=== PATIENT | female | born 1985 | race Caucasian/White ===

== ENCOUNTER 2016-11-20 06:15 | Emergency (ER) | payer SELFPAY ==
[~2016-11-20] VITALS: Ht 175.3 cm; Wt 57.0 kg
[~2016-11-20 06:15] MED LIST: AMOX875T PO; ZOFR4TAB3 SL
[2016-11-20 06:19] VITALS: BP 130/82; PULSE 66; RESP 18; TEMP 97.7; O2SAT 100
[2016-11-20] MEDS ORDERED: BACT800T5 PO (06:47)
[2016-11-20] MEDS ORDERED: MUPI2%T TOPICAL (06:47)
--- NOTE | 2016-11-20 06:47 | PD ---
HPI Chief Complaint: Skin Problem Time Seen by Provider: 06:40 Travel History International Travel<30 days: No Contact w/Intl Traveler<30days: No Traveled to known affect area: No History of Present Illness HPI The patient is a 31-year-old female that got a tattoo 9 days ago and she developed redness around the tattoo. No red streak is present. She denies any fever. PFSH Past Medical History Medical History: Denies Significant Hx Diminished Hearing: No Immunizations Current: Yes Tetanus Vaccination: < 5 Years Influenza Vaccination: No ?: Not LMP: oct 27 : 2 Para: 2 Miscarriage: 0 : 0 Ovarian Cysts: Yes Social History Alcohol Use: Yes (2x week) Tobacco Use: Yes (1 PPD) Substance Use: No Allergies-Medications (Allergen,Severity, Reaction): Coded Allergies: No Known Allergies (Unverified , 11/20/16) Reported Meds & Prescriptions Reported Meds & Active Scripts Active No Active Prescriptions or Reported Medications Review of Systems Except as stated in HPI: all other systems reviewed are Neg Physical Exam Narrative GENERAL: Well-nourished, well-developed patient in no apparent distress. Her vital signs are normal. SKIN: Warm and dry. The left hand between the first and second metacarpals dorsally has a 1-1/2 cm diameter tattoo. There is redness beneath this and a possible red streak coursing upwards for several centimeters. No pus is noted. No drainage is noted. HEAD: Normocephalic. EYES: No scleral icterus. No injection or drainage. NECK: Supple, trachea midline. No JVD or lymphadenopathy. CARDIOVASCULAR: Regular rate and rhythm without murmurs, gallops, or rubs. RESPIRATORY: Breath sounds equal bilaterally. No accessory muscle use. GASTROINTESTINAL: Abdomen soft, non-tender, nondistended. MUSCULOSKELETAL: No cyanosis, or edema. BACK: Nontender without obvious deformity. No CVA tenderness. Data Data Last Documented VS Vital Signs Date Time Temp Pulse Resp B/P Pulse Ox O2 Delivery O2 Flow Rate FiO2 11/20/16 06:19 97.7 66 18 130/82 100 Room Air MDM Medical Decision Making Medical Screen Exam Complete: Yes Emergency Medical Condition: Yes Medical Record Reviewed: Yes Differential Diagnosis Cellulitis, allergy to tattoo pigments, abscessunlikely, lymphadenitis Narrative Course The patient appears to have a cellulitis pole of the tattoo. There appears to be a slight red streak running proximally. Plan: The patient be given Bactroban to put twice daily on the tattoo and Septra DS. Diagnosis Primary Impression: Cellulitis of left hand Additional Instructions: As we discussed, elevate your left hand above your heart as much as possible. Soak it twice daily and then put the Bactroban ointment on it. Take the antibiotic twice daily for 10 days. The oral antibiotics is free at [facility]. If worse, return to the emergency department. Med/Other Pt SpecificInfo: Prescription(s) given Scripts Sulfamethoxazole-Trimethoprim (Bactrim DS)800-160 Mg Tab1 Tab PO BID #20 TAB Ref 0 Prov:Kye Fitzgerald MD 11/20/16 Mupirocin Topical (Bactroban Topical)2 % Cream1 Applic TOPICAL BID #1 TUBE Ref 0 Prov:Kye Fitzgerald MD 11/20/16 Disposition: 01 DISCHARGE HOME Condition: Stable Kye Fitzgerald MD Nov 20, 2016 06:47
[2016-11-20] MEDS ORDERED: SULFAMETHOXAZOLE-TRIMETHOPRIM DS 800-160 MG TAB PO ONE (07:00)
[2017-02-28] MEDS ORDERED: CONCCAP2 PO (10:17)
== END 2016-11-20 07:01 | disposition home or self-care (01) ==
LOC: PHED 06:15
DX: L03.114 Cellulitis of left upper limb (principal); F17.210 Nicotine dependence, cigarettes, uncomplicated
CPT/HCPCS: 99282

== ENCOUNTER 2017-04-27 07:35 | Emergency (ER) | payer MEDICAID ==
[~2017-04-27] VITALS: Ht 175.3 cm; Wt 59.0 kg
[~2017-04-27 07:35] MED LIST changes: -AMOX875T PO; +CONCCAP2 PO; -ZOFR4TAB3 SL
[2017-04-27 07:44] VITALS: BP 113/85; PULSE 70; RESP 16; TEMP 98.3; O2SAT 100
[2017-04-27] MEDS ORDERED: LIDOCAINE HCL 1% PF 30 ML VIAL ONE (07:59)
[2017-04-27] MEDS ORDERED: ACETAMINOPHEN 325 MG TAB PO ONE (08:00)
[2017-04-27] MEDS ORDERED: LIDOCAINE HCL 1% 50 ML VIAL INFIL ONE (08:00)
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
[2017-04-27] MEDS ORDERED: LIDOCAINE HCL 1% PF 30 ML VIAL INFIL ONE (08:15)
--- NOTE | 2017-04-27 08:31 | RADRPT ---
EXAM DATE/TIME: 04/27/2017 08:11 [facility] COMPARISON: No previous studies available for comparison. INDICATIONS : Laceration from window pane glass MEDICAL HISTORY : None. SURGICAL HISTORY : None. ENCOUNTER: Initial ACUITY: 1 day PAIN SCORE: 8/10 LOCATION: Right hand FINDINGS: Two view examination of the right hand demonstrates no soft tissue swelling, dislocation, or fracture . The joint spaces are maintained. Bony mineralization is normal. CONCLUSION: Unremarkable limited examination of the right hand. Tito Hooker MD on April 27, 2017 at 8:29 Board Certified Radiologist. This report was verified electronically.
--- NOTE | 2017-04-27 08:33 | RADRPT ---
EXAM DATE/TIME: 04/27/2017 08:17 [facility] COMPARISON: No previous studies available for comparison. INDICATIONS : Laceration from window pane glass MEDICAL HISTORY : None. SURGICAL HISTORY : None. ENCOUNTER: Initial ACUITY: 1 day PAIN SCORE: 8/10 LOCATION: Left wrist FINDINGS: Two view examination of the left wrist demonstrates no soft tissue swelling, dislocation, or fracture . The joint spaces are maintained. Bony mineralization is normal. CONCLUSION: Unremarkable limited examination of the left wrist except for an abnormal lucency in the distal ulna. There is marked cortical thinning in the metaphyseal lesion with mostly well-defined border. Could be some type of chondroid lesion. Outpatient followup MRI of the left wrist is recommended. Tito Hooker MD on April 27, 2017 at 8:30 Board Certified Radiologist. This report was verified electronically.
[2017-04-27] MEDS ORDERED: TYLE325T PO (09:24)
== END 2017-04-27 09:35 | disposition home or self-care (01) ==
LOC: PHEFT 07:35
DX: S61.512A Laceration without foreign body of left wrist, initial encounter (principal); S61.411A Laceration without foreign body of right hand, initial encounter; W25.XXXA Contact with sharp glass, initial encounter
CPT/HCPCS: 12042; 73100; 73120

== ENCOUNTER 2017-05-13 18:35 | Emergency (ER) | payer MEDICAID ==
[~2017-05-13] VITALS: Ht 175.3 cm; Wt 60.0 kg
[~2017-05-13 18:35] MED LIST changes: -CONCCAP2 PO; +TYLE325T PO
[2017-05-13 18:37] VITALS: BP 109/68; PULSE 64; RESP 20; TEMP 99; O2SAT 100
--- NOTE | 2017-05-13 19:52 | PD ---
HPI Chief Complaint: Wound/Suture/Staple Re-Check Time Seen by Provider: 19:50 Travel History International Travel<30 days: No Contact w/Intl Traveler<30days: No Traveled to known affect area: No History of Present Illness HPI 32-year-old female that presents to the ED for evaluation of suture removal. Patient had sutures performed at this facility on April 27. This was done to the left wrist. Patient had [address] She denies any new symptoms. No pain. Per patient she waited this long because he wanted to make sure that the wound was healing properly. No other medical issues at this time. PFSH Past Medical History Diminished Hearing: No Immunizations Current: Yes ?: Not : 2 Para: 2 Miscarriage: 0 : 0 Ovarian Cysts: Yes Social History Alcohol Use: Yes (2x week) Tobacco Use: Yes (1 PPD) Substance Use: No Allergies-Medications (Allergen,Severity, Reaction): Coded Allergies: No Known Allergies (Unverified , 05/13/17) Reported Meds & Prescriptions Reported Meds & Active Scripts Active Tylenol (Acetaminophen) 325 Mg Tab 650 Mg PO Q6H PRN Review of Systems Except as stated in HPI: all other systems reviewed are Neg Physical Exam Narrative GENERAL: SKIN: Warm and dry. Patient has a healing laceration about 5 cm semicircular with 8 sutures noted. Very well approximated and healed. No sign of bleeding or infection HEAD: Atraumatic. Normocephalic. EYES: Pupils equal and round. No scleral icterus. No injection or drainage. ENT: No nasal bleeding or discharge. Mucous membranes pink and moist. NECK: Trachea midline. No JVD. CARDIOVASCULAR: Regular rate and rhythm. RESPIRATORY: No accessory muscle use. Clear to auscultation. Breath sounds equal bilaterally. GASTROINTESTINAL: Abdomen soft, non-tender, nondistended. Hepatic and splenic margins not palpable. MUSCULOSKELETAL: Extremities without clubbing, cyanosis, or edema. No obvious deformities. NEUROLOGICAL: Awake and alert. No obvious cranial nerve deficits. Motor grossly within normal limits. Five out of 5 muscle strength in the arms and legs. Normal speech. PSYCHIATRIC: Appropriate mood and affect; insight and judgment normal. Data Data Last Documented VS Vital Signs Date Time Temp Pulse Resp B/P Pulse Ox O2 Delivery O2 Flow Rate FiO2 05/13/17 18:37 99.0 64 20 109/68 100 Room Air MDM Medical Decision Making Medical Screen Exam Complete: Yes Emergency Medical Condition: Yes Medical Record Reviewed: Yes Differential Diagnosis Laceration versus suture removal versus wound healing Narrative Course 32 -year-old female that presents to the ED for evaluation of suture removal. Patient was properly examined and was found to have signs and symptoms consistent appears to be suture removal. No sign of acute medical distress. After explained procedure to the patient and she agreed to it using suture removal kit all 8 sutures were removed by me. Patient tolerated procedure well. Area was cleaned with saline and Betadine and new dressing was applied. Told to continue doing wound care. Follow with PCP. See ED worsening symptoms. Diagnosis Primary Impression: Visit for suture removal Patient Instructions: General Instructions Additional Instructions: Use meoderma OTC to help with scarring. Keep it away from swimming for about 2-3 days. Keep it away from the sun or apply sunscreen to the area while outside for two more weeks. See ED if worsening symptoms. F/u with PCP. Med/Other Pt SpecificInfo: No Change to Meds Disposition: 01 DISCHARGE HOME Condition: Stable Rolf Patterson May 13, 2017 19:52
== END 2017-05-13 20:03 | disposition home or self-care (01) ==
LOC: NEPD 18:35
DX: Z48.02 Encounter for removal of sutures (principal); F17.200 Nicotine dependence, unspecified, uncomplicated
CPT/HCPCS: 99281

== ENCOUNTER 2017-12-26 14:15 | Emergency (ER) | payer MEDICAID ==
[~2017-12-26] VITALS: Ht 175.3 cm; Wt 58.3 kg
[2017-12-26 14:19] VITALS: BP 138/76; PULSE 57; RESP 16; TEMP 98.4; O2SAT 100
--- NOTE | 2017-12-26 14:42 | PD ---
HPI Chief Complaint: GI Complaint Time Seen by Provider: 14:38 Travel History International Travel<30 days: No Contact w/Intl Traveler<30days: No Traveled to known affect area: No History of Present Illness HPI This 32-year-old female says she started sweating last night. She got nauseated and has had persistent vomiting. She is having some headache. She had some loose stools. She has been unable to hold anything down today. She is on no medication. Nobody else has been sick. PFSH Past Medical History Diminished Hearing: No Immunizations Current: Yes ?: Not LMP: 12/19/17 : 2 Para: 2 Miscarriage: 0 : 0 Ovarian Cysts: Yes Social History Alcohol Use: Yes (2x week) Tobacco Use: Yes (1 PPD) Substance Use: No Allergies-Medications (Allergen,Severity, Reaction): Coded Allergies: No Known Allergies (Unverified Adverse Reaction, Unknown, 12/26/17) Reported Meds & Prescriptions Reported Meds & Active Scripts Active Zofran Odt (Ondansetron Odt) 4 Mg Tab 4 Mg SL Q6HR PRN Tylenol (Acetaminophen) 325 Mg Tab 650 Mg PO Q6H PRN Review of Systems General / Constitutional: No: Fever, Chills Eyes: No: Diploplia, Blurred Vision HENT: Positive: Headaches, No: Vertigo Cardiovascular: No: Chest Pain or Discomfort, Palpitations Respiratory: No: Cough, Shortness of Breath Gastrointestinal: Positive: Vomiting, Diarrhea Genitourinary: No: Urgency, Frequency Musculoskeletal: No: Myalgias Skin: No Rash Hematologic/Lymphatic: No: Easy Bruising Physical Exam Narrative GENERAL well-developed female SKIN: Focused skin assessment warm/dry. HEAD: Atraumatic. Normocephalic. EYES: Pupils equal and round. No scleral icterus. No injection or drainage. ENT: No nasal bleeding or discharge. Mucous membranes pink and moist. NECK: Trachea midline. No JVD. CARDIOVASCULAR: Regular rate and rhythm. No murmur appreciated. RESPIRATORY: No accessory muscle use. Clear to auscultation. Breath sounds equal bilaterally. GASTROINTESTINAL: Abdomen soft, non-tender, nondistended. Hepatic and splenic margins not palpable. MUSCULOSKELETAL: No obvious deformities. No clubbing. No cyanosis. No edema. NEUROLOGICAL: Awake and alert. No obvious cranial nerve deficits. Motor grossly within normal limits. Normal speech. PSYCHIATRIC: Appropriate mood and affect; insight and judgment normal. Data Data Last Documented VS Vital Signs Date Time Temp Pulse Resp B/P (MAP) Pulse Ox O2 Delivery O2 Flow Rate FiO2 12/26/17 14:19 98.4 57 16 138/76 (96) 100 Orders Orders Complete Blood Count With Diff (12/26/17 14:38) Comprehensive Metabolic Panel (12/26/17 14:38) Urinalysis - C+S If Indicated (12/26/17 14:38) Sodium Chlor 0.9% 1000 Ml Inj (Ns 1000 M (12/26/17 14:45) Sodium Chlor 0.9% 1000 Ml Inj (Ns 1000 M (12/26/17 14:45) Ondansetron Inj (Zofran Inj) (12/26/17 14:45) Acetaminophen (Tylenol) (12/26/17 15:30) Labs Laboratory Tests Test 12/26/17 14:56 White Blood Count 7.6 TH/MM3 Red Blood Count 4.26 MIL/MM3 Hemoglobin 13.7 GM/DL Hematocrit 40.1 % Mean Corpuscular Volume 94.2 FL Mean Corpuscular Hemoglobin 32.3 PG Mean Corpuscular Hemoglobin Concent 34.2 % Red Cell Distribution Width 12.8 % Platelet Count 364 TH/MM3 Mean Platelet Volume 8.8 FL Neutrophils (%) (Auto) 55.3 % Lymphocytes (%) (Auto) 31.7 % Monocytes (%) (Auto) 8.3 % Eosinophils (%) (Auto) 4.2 % Basophils (%) (Auto) 0.5 % Neutrophils # (Auto) 4.3 TH/MM3 Lymphocytes # (Auto) 2.4 TH/MM3 Monocytes # (Auto) 0.6 TH/MM3 Eosinophils # (Auto) 0.3 TH/MM3 Basophils # (Auto) 0.0 TH/MM3 CBC Comment DIFF FINAL Differential Comment Blood Urea Nitrogen 16 MG/DL Creatinine 1.00 MG/DL Random Glucose 77 MG/DL Total Protein 6.5 GM/DL Albumin 3.6 GM/DL Calcium Level 8.6 MG/DL Alkaline Phosphatase 44 U/L Aspartate Amino Transf (AST/SGOT) 16 U/L Alanine Aminotransferase (ALT/SGPT) 15 U/L Total Bilirubin 0.8 MG/DL Sodium Level 141 MEQ/L Potassium Level 3.6 MEQ/L Chloride Level 108 MEQ/L Carbon Dioxide Level 25.1 MEQ/L Anion Gap 8 MEQ/L Estimat Glomerular Filtration Rate 64 ML/MIN MDM Medical Decision Making Medical Screen Exam Complete: Yes Emergency Medical Condition: Yes Medical Record Reviewed: Yes Differential Diagnosis Differential includes gastroenteritis, viral illness, food poisoning, dehydration Narrative Course Patient given IV fluids and some Zofran. Her hemoglobin is 13.7 with a white count of 7000. Her BUN is 16 with creatinine of 1. After the fluids she is still complaining of headache. She neck is supple and there is no focal finding. She will be given some Tylenol. Impression is gastroenteritis Diagnosis Primary Impression: Gastroenteritis Scripts Ondansetron Odt (Zofran Odt) 4 Mg Tab 4 MG SL Q6HR Y for Nausea/Vomiting, #8 TAB 0 Refills Prov: Luciano Finney MD 12/26/17 Disposition: 01 DISCHARGE HOME Condition: Stable Luciano Finney MD Dec 26, 2017 14:42
[2017-12-26] MEDS ORDERED: ONDANSETRON HCL 4 MG/2 ML VIAL IV PUSH ONE (14:45)
[2017-12-26] MEDS ORDERED: SODIUM CHLOR 0.9% 1000 ML INJ 1,000 ML IV ONE ×2 (14:45)
[2017-12-26 15:03] LABS: AUTOMATED NEUTROPHIL # 4.3 TH/MM3 (1.8-7.7); BASOPHIL % 0.5 % (0.0-2.0); EOSINOPHIL # 0.3 TH/MM3 (0-0.4); EOSINOPHIL % 4.2 % (0.0-4.0); HEMATOCRIT 40.1 % (35.0-46.0); HEMOGLOBIN 13.7 GM/DL (11.6-15.3); LYMPH % 31.7 % (9.0-44.0); LYMPHOCYTE # 2.4 TH/MM3 (1.0-4.8); MEAN CELL VOLUME 94.2 FL (80.0-100.0); MEAN CORPUSCULAR HEMOGLOBIN 32.3 PG (27.0-34.0); MEAN CORPUSCULAR HGB CONC 34.2 % (32.0-36.0); MEAN PLATELET VOLUME 8.8 FL (7.0-11.0); MONO % 8.3 % (0.0-8.0); MONOCYTE # 0.6 TH/MM3 (0-0.9); NEUT % 55.3 % (16.0-70.0); PLATELET COUNT 364 TH/MM3 (150-450); RED BLOOD COUNT 4.26 MIL/MM3 (4.00-5.30); RED CELL DISTRIBUTION WIDTH 12.8 % (11.6-17.2); WHITE BLOOD COUNT 7.6 TH/MM3 (4.0-11.0)
[2017-12-26 15:15] LABS: CHLORIDE 108 MEQ/L (98-107); SODIUM (NA) 141 MEQ/L (136-145)
[2017-12-26 15:18] LABS: ALBUMIN 3.6 GM/DL (3.4-5.0); BICARBONATE 25.1 MEQ/L (21.0-32.0); CALCIUM 8.6 MG/DL (8.5-10.1); GLUCOSE,RANDOM 77 MG/DL (74-106)
[2017-12-26 15:19] LABS: BLOOD UREA NITROGEN 16 MG/DL (7-18)
[2017-12-26 15:21] LABS: ALT (GPT) 15 U/L (10-53); AST (GOT) 16 U/L (15-37); GLOMERULAR FILTRATION RATE 64 ML/MIN (>89)
[2017-12-26 15:23] LABS: TOTAL BILIRUBIN ADULT 0.8 MG/DL (0.2-1.0); TOTAL PROTEIN 6.5 GM/DL (6.4-8.2)
[2017-12-26 15:24] LABS: ALKALINE PHOSPHATASE 44 U/L (45-117)
[2017-12-26] MEDS ORDERED: ACETAMINOPHEN 325 MG TAB PO ONE (15:30)
[2017-12-26] MEDS ORDERED: ZOFR4TAB3 SL (15:42)
[2017-12-26 16:05] LABS: BILIRUBIN, URINE NEG (NEG); BLOOD, URINE NEG (NEG); GLUCOSE,URINE NEG (NEG); KETONE, URINE NEG (NEG); NITRITE,URINE NEG (NEG); URINE COLOR YELLOW (YELLW/STRAW); URINE LEUKOCYTE ESTERASE NEG (NEG)
[2017-12-26 16:39] LABS: SQUAMOUS EPITHELIAL CELL URINE 0-5 /hpf (0-5); WBC, URINE 0-2 /hpf (0-5)
== END 2017-12-26 16:51 | disposition home or self-care (01) ==
LOC: PHED 14:15
DX: K52.9 Noninfective gastroenteritis and colitis, unspecified (principal); R51 Headache; F17.210 Nicotine dependence, cigarettes, uncomplicated
CPT/HCPCS: 80053; 81001; 85025; 96374; 99283; J2405; J7030

== ENCOUNTER 2018-01-13 08:45 | Emergency (ER) | payer MEDICAID ==
[~2018-01-13] VITALS: Ht 175.3 cm; Wt 60.7 kg
[~2018-01-13 08:45] MED LIST changes: +ZOFR4TAB3 SL
[2018-01-13 08:49] VITALS: BP 132/81; PULSE 70; RESP 16; TEMP 98.3; O2SAT 100
--- NOTE | 2018-01-13 09:12 | PD ---
HPI Chief Complaint: Oral / Dental Pain or Problem Time Seen by Provider: 09:11 Travel History International Travel<30 days: No Contact w/Intl Traveler<30days: No Traveled to known affect area: No History of Present Illness HPI 32-year-old female came to the emergency room with history of toothache. She has been having this toothache for past 4-5 days. Patient says she bit on a hard candy and chipped her tooth #23. She's been taking Advil but the pain has not gone. However this morning when she woke up she noticed that her gum was swelling on that side. She has not been to a dentist for this. Patient seemed uncomfortable and tearful. No history of fever or chills. PFSH Past Medical History Narrative Medical List of her past medical, surgical, social and family history is reviewed from the nursing note. Hx Anticoagulant Therapy: No Diabetes: No Diminished Hearing: No Immunizations Current: Yes Tetanus Vaccination: Unknown ?: Not : 2 Para: 2 Miscarriage: 0 : 0 Ovarian Cysts: Yes Social History Alcohol Use: Yes (2x week) Tobacco Use: Yes (1 PPD) Substance Use: No Allergies-Medications (Allergen,Severity, Reaction): Coded Allergies: No Known Allergies (Unverified Adverse Reaction, Unknown, 01/13/18) Comments No known drug allergies Reported Meds & Prescriptions Reported Meds & Active Scripts Active Amoxicillin 250 Mg Chew 250 Mg CHEW TID 10 Days Narrative Medication List of her home medications reviewed from the nursing note. Review of Systems Except as stated in HPI: all other systems reviewed are Neg HENT: Positive: Dental Difficulties Physical Exam Narrative GENERAL: Awake, alert, moderate distress SKIN: Focused skin assessment warm/dry. HEAD: Atraumatic. Normocephalic. EYES: Pupils equal and round. No scleral icterus. No injection or drainage. ENT: No nasal bleeding or discharge. Mucous membranes pink and moist. Swelling of the gum near #23. #23 seems cracked. There is tenderness but no fluctuation NECK: Trachea midline. No JVD. CARDIOVASCULAR: Regular rate and rhythm. No murmur appreciated. RESPIRATORY: No accessory muscle use. Clear to auscultation. Breath sounds equal bilaterally. GASTROINTESTINAL: Abdomen soft, non-tender, nondistended. Hepatic and splenic margins not palpable. MUSCULOSKELETAL: No obvious deformities. No clubbing. No cyanosis. No edema. NEUROLOGICAL: Awake and alert. No obvious cranial nerve deficits. Motor grossly within normal limits. Normal speech. PSYCHIATRIC: Appropriate mood and affect; insight and judgment normal. Data Data Last Documented VS Orders Orders Amoxicillin (Trimox) (01/13/18 09:30) Acetamin-Hydrocod 325-5 Mg ([place] 5-325 (01/13/18 09:30) Ed Discharge Order (01/13/18 10:06) [facility] Medical Decision Making Medical Screen Exam Complete: Yes Emergency Medical Condition: Yes Medical Record Reviewed: Yes Differential Diagnosis Dental abscess, toothache,. Peridental abscess Narrative Course 10:01 AM patient was given amoxicillin and pain medication. I will discharge her home and I have recommended her to follow up with a dentist. Procedures EKG Prior to Arrival: No Diagnosis Primary Impression: Dental abscess Additional Impression: Dentalgia Referrals: Primary Care Physician Additional Instructions: Take the medication as per the prescription direction in addition to Advil/ ibuprofen/Motrin for pain. Follow-up with the dentist as possible. Return to the ER if condition worsens or any other new concerns. Med/Other Pt SpecificInfo: Prescription(s) given Scripts Amoxicillin (Amoxicillin) 250 Mg Chew 250 MG CHEW TID for Infection for 10 Days, TAB 0 Refills Prov: Candace Christopher MD 01/13/18 Disposition: 01 DISCHARGE HOME Condition: Stable Candace Christopher MD Jan 13, 2018 09:11
[2018-01-13] MEDS ORDERED: ACETAMINOPHEN/HYDROcodone 325 MG/5 MG TAB PO ONE (09:30)
[2018-01-13] MEDS ORDERED: AMOXICILLIN (TRIHYDRATE) 500 MG CAP PO ONE (09:30)
[2018-01-13] MEDS ORDERED: AMOX250C CHEW (10:06)
== END 2018-01-13 10:16 | disposition home or self-care (01) ==
LOC: PHEFT 08:45
DX: K04.7 Periapical abscess without sinus (principal); F17.200 Nicotine dependence, unspecified, uncomplicated
CPT/HCPCS: 99283

== ENCOUNTER 2018-03-05 08:47 | Emergency (ER) | payer SELFPAY ==
[~2018-03-05] VITALS: Ht 175.3 cm; Wt 57.0 kg
[~2018-03-05 08:47] MED LIST changes: +AMOX250C CHEW; -TYLE325T PO; -ZOFR4TAB3 SL
[2018-03-05 08:50] VITALS: BP 138/87; PULSE 82; RESP 18; TEMP 98.7; O2SAT 100
[2018-03-05] MEDS ORDERED: SODIUM CHLORIDE 0.9% FLUSH 10 ML FLUSH IVF PRN (09:15)
[2018-03-05] MEDS ORDERED: LORazepam 2 MG/ML VIAL IV PUSH ONE (09:15)
[2018-03-05 09:27] LABS: AUTOMATED NEUTROPHIL # 4.3 TH/MM3 (1.8-7.7); BASOPHIL # 0.1 TH/MM3 (0-0.2); BASOPHIL % 1.2 % (0.0-2.0); EOSINOPHIL # 0.3 TH/MM3 (0-0.4); EOSINOPHIL % 5.1 % (0.0-4.0); HEMOGLOBIN 14.8 GM/DL (11.6-15.3); LYMPHOCYTE # 1.5 TH/MM3 (1.0-4.8); MEAN CELL VOLUME 95.4 FL (80.0-100.0); MEAN CORPUSCULAR HEMOGLOBIN 32.8 PG (27.0-34.0); MEAN CORPUSCULAR HGB CONC 34.4 % (32.0-36.0); MEAN PLATELET VOLUME 9.2 FL (7.0-11.0); MONO % 6.5 % (0.0-8.0); MONOCYTE # 0.4 TH/MM3 (0-0.9); NEUT % 65.2 % (16.0-70.0); PLATELET COUNT 337 TH/MM3 (150-450); RED CELL DISTRIBUTION WIDTH 13.4 % (11.6-17.2); WHITE BLOOD COUNT 6.7 TH/MM3 (4.0-11.0)
[2018-03-05 09:41] LABS: ALBUMIN 4.1 GM/DL (3.4-5.0); AST (GOT) 19 U/L (15-37); BLOOD UREA NITROGEN 13 MG/DL (7-18); CALCIUM 9.2 MG/DL (8.5-10.1); CHLORIDE 110 MEQ/L (98-107); CREATININE 0.94 MG/DL (0.50-1.00); GLOMERULAR FILTRATION RATE 69 ML/MIN (>89); GLUCOSE,RANDOM 92 MG/DL (74-106); SODIUM (NA) 144 MEQ/L (136-145)
[2018-03-05 09:42] LABS: ALT (GPT) 24 U/L (10-53)
[2018-03-05 09:46] LABS: ALKALINE PHOSPHATASE 53 U/L (45-117); TOTAL BILIRUBIN ADULT 0.7 MG/DL (0.2-1.0); TOTAL PROTEIN 7.9 GM/DL (6.4-8.2); TROPONIN I LESS THAN 0.02 NG/ML (0.02-0.05)
--- NOTE | 2018-03-05 09:52 | RADRPT ---
EXAM DATE/TIME: 03/05/2018 09:19 [facility] COMPARISON: WRIST LEFT LIMITED (AP & LAT), April 27, 2017, 8:17. INDICATIONS : Midsternal chest pains radiating into right upper chest x1 day. MEDICAL HISTORY : None. SURGICAL HISTORY : None. ENCOUNTER: Initial ACUITY: 1 day PAIN SCORE: 8/10 LOCATION: Right chest FINDINGS: A single view of the chest demonstrates the lungs to be symmetrically aerated without evidence of mas s, infiltrate or effusion. The cardiomediastinal contours are unremarkable. Osseous structures are intact. CONCLUSION: 1. No acute cardiopulmonary findings. Aldair Riggs MD on March 05, 2018 at 9:46 Board Certified Radiologist. This report was verified electronically.
[2018-03-05 10:00] VITALS: O2SAT 97
[2018-03-05] MEDS ORDERED: NAPR500T2 PO (10:06)
--- NOTE | 2018-03-05 10:06 | PD ---
HPI Chief Complaint: Chest Pain Time Seen by Provider: 09:00 Travel History International Travel<30 days: No Contact w/Intl Traveler<30days: No Traveled to known affect area: No History of Present Illness HPI This is a 33-year-old female who presents to the emergency department with chest discomfort that started yesterday, constant, severe involving the right side of the chest, radiating to the back, worse with deep breaths and radiating to the right arm with some tingling in her right arm. She has been under a lot of stress over the past week. She also goes to the gym every day. She just went through a breakup and she is having car problems. She denies any recent illness, recent travel or recent long trips. Her mom is getting evaluated for heart disease and is 58. She does smoke intermittently. She denies any history of hypertension, hyperlipidemia or diabetes. She tried these Biofreeze on the area but it was not helping so she came to the emergency room. PFSH Past Medical History Hx Anticoagulant Therapy: No Diabetes: No Diminished Hearing: No Immunizations Current: Yes ?: Not LMP: 02/22/18 : 2 Para: 2 Miscarriage: 0 : 0 Ovarian Cysts: Yes Social History Alcohol Use: Yes (2x week) Tobacco Use: Yes (1 PPD) Substance Use: No Allergies-Medications (Allergen,Severity, Reaction): Coded Allergies: No Known Allergies (Unverified Adverse Reaction, Unknown, 03/05/18) Reported Meds & Prescriptions Reported Meds & Active Scripts Active No Active Prescriptions or Reported Medications Review of Systems Except as stated in HPI: all other systems reviewed are Neg Physical Exam Narrative GENERAL: Tearful, anxious appearing SKIN: Focused skin assessment warm and dry. HEAD: Atraumatic. Normocephalic. EYES: Pupils equal and round. No injection or drainage. ENT: Moist mucous membranes NECK: Trachea midline. CARDIOVASCULAR: Regular rate and rhythm. No murmur appreciated. RESPIRATORY: Clear to auscultation. Breath sounds equal bilaterally. GASTROINTESTINAL: Abdomen soft, non-tender, nondistended. MUSCULOSKELETAL: No obvious deformities. NEUROLOGICAL: Awake and alert. No obvious cranial nerve deficits. Moving all extremities. Data Data Last Documented VS Vital Signs Date Time Temp Pulse Resp B/P (MAP) Pulse Ox O2 Delivery O2 Flow Rate FiO2 03/05/18 08:50 98.7 82 18 138/87 (104) 100 Orders Orders Electrocardiogram (03/05/18 09:09) Complete Blood Count With Diff (03/05/18 09:09) Comprehensive Metabolic Panel (03/05/18 09:09) Troponin I (03/05/18 09:09) Chest, Single Ap (03/05/18 09:09) Ecg Monitoring (03/05/18 09:09) Bilateral Bp Monitoring (03/05/18 09:09) Iv Access Insert/Monitor (03/05/18 09:09) Oximetry (03/05/18 09:09) Oxygen Administration (03/05/18 09:09) Sodium Chloride 0.9% Flush (Ns Flush) (03/05/18 09:15) Lorazepam Inj (Ativan Inj) (03/05/18 09:15) Labs Laboratory Tests Test 03/05/18 09:00 White Blood Count 6.7 TH/MM3 Red Blood Count 4.50 MIL/MM3 Hemoglobin 14.8 GM/DL Hematocrit 43.0 % Mean Corpuscular Volume 95.4 FL Mean Corpuscular Hemoglobin 32.8 PG Mean Corpuscular Hemoglobin Concent 34.4 % Red Cell Distribution Width 13.4 % Platelet Count 337 TH/MM3 Mean Platelet Volume 9.2 FL Neutrophils (%) (Auto) 65.2 % Lymphocytes (%) (Auto) 22.0 % Monocytes (%) (Auto) 6.5 % Eosinophils (%) (Auto) 5.1 % Basophils (%) (Auto) 1.2 % Neutrophils # (Auto) 4.3 TH/MM3 Lymphocytes # (Auto) 1.5 TH/MM3 Monocytes # (Auto) 0.4 TH/MM3 Eosinophils # (Auto) 0.3 TH/MM3 Basophils # (Auto) 0.1 TH/MM3 CBC Comment DIFF FINAL Differential Comment Blood Urea Nitrogen 13 MG/DL Creatinine 0.94 MG/DL Random Glucose 92 MG/DL Total Protein 7.9 GM/DL Albumin 4.1 GM/DL Calcium Level 9.2 MG/DL Alkaline Phosphatase 53 U/L Aspartate Amino Transf (AST/SGOT) 19 U/L Alanine Aminotransferase (ALT/SGPT) 24 U/L Total Bilirubin 0.7 MG/DL Sodium Level 144 MEQ/L Potassium Level 4.1 MEQ/L Chloride Level 110 MEQ/L Carbon Dioxide Level 25.0 MEQ/L Anion Gap 9 MEQ/L Estimat Glomerular Filtration Rate 69 ML/MIN Troponin I LESS THAN 0.02 NG/ML MDM Medical Decision Making Medical Screen Exam Complete: Yes Emergency Medical Condition: Yes Interpretation(s) EKG: Normal sinus rhythm, prominent T waves in the lateral leads, no ST segment changes No leukocytosis Electrolytes are reassuring Troponin is normal Chest x-ray: No acute process Differential Diagnosis Pericarditis, myocardial infarction, panic attack, pulmonary embolism Narrative Course This is a 33-year-old female who presents to the emergency department with atypical right-sided chest pain. She is very tearful on exam suggesting a panic attack. She was placed on a monitor and an IV was established. She was given a low-dose Ativan. Her EKG is nonischemic. Labs are reassuring. Chest x -ray is unremarkable. The patient is PERC negative. I have a very low suspicion for acute coronary syndrome given the pain is right-sided, the patient is young and her only risk factor is infrequent smoking. I think patient can safely be discharged with anti-inflammatories and I suspect her pain is musculoskeletal. Diagnosis Primary Impression: Atypical chest pain Patient Instructions: General Instructions Additional Instructions: If you develop severe chest pain, shortness of breath, sweating, lightheadedness , dizziness or difficulty breathing return to the emergency department immediately. Followup with your primary care physician in 2-3 days if your symptoms are not resolved. Med/Other Pt SpecificInfo: Prescription(s) given Scripts Naproxen (Naproxen) 500 Mg Tab 500 MG PO BID Y for PAIN SCALE 4 TO 10, #10 TAB 0 Refills Prov: Marichuy Simpson MD 03/05/18 Disposition: 01 DISCHARGE HOME Condition: Stable Marichuy Simpson MD March 05, 2018 10:06
[2018-03-05] MEDS ORDERED: KETOROLAC TROMETHAMINE 30 MG/ML (IVP) VIAL IV PUSH ONE (10:15)
--- NOTE | 2018-03-05 22:12 | EKG ---
Date Performed: 03/05/2018 Time Performed: 08:58:08 PTAGE: 33 years EKG: Sinus rhythm WITH SINUS ARRHYTHMIA NORMAL ECG INTERPRETATION BASED ON A DEFAULT AGE OF 40 YEARS NO PREVIOUS TRACING DOCTOR: Mike Lawrence Interpretating Date/Time 03/05/2018 22:11:39
== END 2018-03-05 11:02 | disposition home or self-care (01) ==
LOC: NEPC 08:47
DX: R07.89 Other chest pain (principal); I49.8 Other specified cardiac arrhythmias; F17.210 Nicotine dependence, cigarettes, uncomplicated
CPT/HCPCS: 71045; 80053; 84484; 85025; 93005; 96374; 96375; 99285; J1885; J2060